=== PATIENT | male | born 1940 | race Caucasian/White ===

== ENCOUNTER 2022-06-19 10:19 | Inpatient (IN) | payer OTHER ==
[~2022-06-19] VITALS: Ht 188 cm; Wt 120.5 kg
[~2022-06-19 10:19] MED LIST: AMLO10 PO; AMLO5 PO; ASPI81CH PO; ATOR20 PO; Carvedilol12.5 MG PO; ETOD400CR PO; FISH OIL 1,2001 EAC7; HYDCHL12.5 PO; METF500 PO; Multiple Vitam1 EAC1 PO; SIME80CH PO
[2022-06-19 11:14] LABS: BASOPHILS ABSOLUTE AUTO 0.02 K/mm3 (0.00-0.23); BASOPHILS PERCENT AUTO 0 % (0-2); EOSINOPHILS ABSOLUTE AUTO 0.01 K/mm3 (0.00-0.68); EOSINOPHILS PERCENT AUTO 0 % (0-6); Hematocrit 27.8 % (37.0-53.0); Hemoglobin 9.6 g/dL (13.5-17.5); IMMATURE GRAN ABSOLUTE AUTO 0.04 K/mm3 (0.00-0.10); IMMATURE GRAN PERCENT AUTO 1 % (0-1); LYMPHOCYTES ABSOLUTE AUTO 0.53 K/mm3 (0.84-5.20); LYMPHOCYTES PERCENT AUTO 7 % (21-46); MONOCYTES ABSOLUTE AUTO 0.52 K/mm3 (0.16-1.47); MONOCYTES PERCENT AUTO 7 % (4-13); Mean Corpuscular HGB 32.3 pg (26.0-34.0); Mean Corpuscular HGB Conc 34.5 g/dL (31.5-36.5); Mean Corpuscular Volume 94 fL (80-100); Mean Platelet Volume 9.9 fL (9.1-12.4); NEUTROPHILS ABSOLUTE AUTO 6.45 K/mm3 (1.96-9.15); NEUTROPHILS PERCENT AUTO 85 % (41-73); Platelet Count 164 K/mm3 (150-400); RDW Coefficient Variation 15.5 % (11.7-14.2); RDW Standard Deviation 53.5 fL (35.1-46.3); Red Blood Cell Count 2.97 M/mm3 (4.30-5.90); White Blood Cell Count 7.57 K/mm3 (4.00-11.30)
[2022-06-19 11:25] LABS: Albumin, Blood 2.9 g/dL (3.4-5.0); Albumin/Globulin Ratio 0.7 (0.8-1.8); Bilirubin, Direct 0.5 mg/dL (0.0-0.3); Bilirubin, Indirect 1.2 mg/dL (0.1-0.7); Bilirubin, Total 1.7 mg/dL (0.1-1.0); Bun/Creatinine Ratio 46.5 (12.0-20.0); Creatinine, Blood 1.14 mg/dL (0.60-1.20); Potassium, Blood 3.9 mmol/L (3.5-5.5); Total Protein, Blood 6.9 g/dL (6.4-8.2)
[2022-06-19 12:51] LABS: International Normalized Ratio 1.23; Prothrombin Time Results 12.7 Sec (9.7-11.5)
[2022-06-19 13:57] LABS: Hematocrit 27.7 % (37.0-53.0); Hemoglobin 9.7 g/dL (13.5-17.5)
--- NOTE | 2022-06-19 16:02 | NUR ---
06/19/22 1602 [place] HISTORY, CHART, MEDICATIONS AND ALLERGIES REVIEWED BEFORE START OF PROCEDURE. PATIENT CONFIRMS NPO STATUS AND AGREES WITH SCHEDULED PROCEDURE. 3-LEAD EKG REVIEWED WITH PHYSICIAN PRIOR TO START OF PROCEDURE. MONITOR INTACT WITH CONTINUOUS PULSE OXIMETRY,CAPNOGRAPHY, 3-LEAD EKG, INTERMITTENT BP. SUPPLEMENTAL O2 TO BE TITRATED THROUGHOUT PROCEDURE TO MAINTAIN O2 SATURATION ABOVE 90%. PATIENT DETERMINED TO BE ASA APPROPRIATE FOR PROPOFOL SEDATION PRIOR TO START OF PROCEDURE BY DR. KYLE.
--- NOTE | 2022-06-19 18:54 | NUR ---
PT ARRIVED FROM HER AT APROX 1430. PT TAKEN TO EGD, SEE PROCEDURE NOTES. NO ACUTE EVENTS, PT HAS RECOVERED WELL P0ST ANETHESIA. PT IS VERY [place]. SEE DOCUMENTED VS AND ASSESSMENTS. PT ABLE TO STAND AND AMBULATE TO REST ROOM WITH STAFF STANDBY ASSISTANCE. PT ABLE TO USE CALL LIGHT FOR NEEDS, CALL LIGHT IN REACH, WILL CONTINUE TO MONITOR AND GIVE REPORT TO NOC SHIFT RN.
[2022-06-19 19:40] LABS: Hematocrit 23.7 % (37.0-53.0); Hemoglobin 8.3 g/dL (13.5-17.5)
--- NOTE | 2022-06-19 20:49 | NUR ---
ASSUMPTION OF CARE THIS RN ASSUMED CARE OF PATIENT AT 1900. REPORT TAKEN FROM REGULO CORDOVA. PATIENT ALERT AND ORIENTED FULLY BUT [place]. ABLE TO MAKE NEEDS KNOWN. PATIENT APPEARS FATIGUED. VITALS STABLE. MAP >65 AT THIS TIME. HEMOGLOBIN 8.3 AT THIS TIME, DOWN FROM 9.7 FROM LAB AT 1347 06/19. BLOOD CONSENT SIGNED. PROTONIX GTT, OCTREOTIDE GTT, AND NS INFUSING PER EMAR. BED IN LOWEST POSITION AND CALL LIGHT WITHIN REACH.
[2022-06-20 02:05] LABS: Hematocrit 21.8 % (37.0-53.0); Hemoglobin 7.7 g/dL (13.5-17.5)
[2022-06-20 02:25] LABS: Albumin, Blood 2.6 g/dL (3.4-5.0); Albumin/Globulin Ratio 0.9 (0.8-1.8); Bilirubin, Total 0.9 mg/dL (0.1-1.0); Bun/Creatinine Ratio 48.7 (12.0-20.0); Calcium, Blood 8.6 mg/dL (8.5-10.1); Creatinine, Blood 1.17 mg/dL (0.60-1.20); Globulin, Blood 2.9 g/dL (2.2-4.0); Percent Saturation 25.8 % (20.0-50.0); Potassium, Blood 3.7 mmol/L (3.5-5.5); Total Protein, Blood 5.5 g/dL (6.4-8.2)
--- NOTE | 2022-06-20 04:23 | NUR ---
SHIFT SUMMARY NO ACUTE CHANGES DURING THIS SHIFT. PATIENT DENIES DIZZINESS, SOB, N/V, AND NO DARK COLORED BM DURING THIS SHIFT. VITALS STABLE. MAP >65. SR WITH 1ST DEGREE HB WITH HR 70-90'S DURING THIS SHIFT. PATIENT IS ALERT AND ORIENTED X4 AND ABLE TO MAKE NEEDS KNOWN AND CALLS APPROPRIATELY. OCTREOTIDE GTT, PROTONIX GTT, AND NS INFUSING PER EMAR. BED IN LOWEST POSITION AND CALL LIGHT WITHIN REACH. THIS RN WILL CONTINUE TO MONITOR UNTIL SHIFT CHANGE AT 0700.
--- NOTE | 2022-06-20 19:30 | NUR ---
ASSUMPTION OF CARE THIS RN ASSUMED CARE OF PATIENT AT 1900. REPORT TAKEN FROM JENSEN CORDOVA. PATIENT ALERT AND ORIENTED FULLY. [place]. DENIES ALL PAIN. DENIES N/V. DENIES DIZZINESS/SOB. VITALS STABLE AT THIS TIME. PROTONIX GTT, OCTREOTIDE GTT, AND NS INFUSING PER EMAR. PATIENT ABLE TO MAKE NEEDS KNOWN AND CALLS APPROPRIATELY. BED IN LOWEST POSITION AND CALL LIGHT WITHIN REACH.
[2022-06-21 03:43] LABS: Hematocrit 22.1 % (37.0-53.0); Hemoglobin 7.6 g/dL (13.5-17.5); Mean Corpuscular HGB 32.5 pg (26.0-34.0); Mean Corpuscular HGB Conc 34.4 g/dL (31.5-36.5); Mean Corpuscular Volume 94 fL (80-100); Mean Platelet Volume 9.4 fL (9.1-12.4); Platelet Count 114 K/mm3 (150-400); RDW Coefficient Variation 15.7 % (11.7-14.2); Red Blood Cell Count 2.34 M/mm3 (4.30-5.90); White Blood Cell Count 3.95 K/mm3 (4.00-11.30)
[2022-06-21 04:02] LABS: Albumin, Blood 2.7 g/dL (3.4-5.0); Anion Gap 8 mmol/L (6-16); Blood Urea Nitrogen 35 mg/dL (8-24); Bun/Creatinine Ratio 32.1 (12.0-20.0); CO2, Blood 24 mmol/L (21-32); Calcium, Blood 8.4 mg/dL (8.5-10.1); Chloride, Blood 105 mmol/L (98-108); Creatinine, Blood 1.09 mg/dL (0.60-1.20); Glomerular Filtration Rate 68 (60-); Glucose, Blood 154 mg/dL (70-99); Phosphorus, Blood 2.8 mg/dL (2.5-4.9); Potassium, Blood 3.5 mmol/L (3.5-5.5); Sodium, Blood 137 mmol/L (136-145)
--- NOTE | 2022-06-21 04:45 | NUR ---
SHIFT SUMMARY NO ACUTE CHANGES DURING THIS SHIFT. VITALS STABLE. HGB STABLE WITH THIS AM'S LAB DRAW AT 7.6. PATIENT IS [place] & [place]. ORIENTED FULLY AND CALLS APPROPRIATELY. 1P ASSIST WITH FWW TO BATHROOM. CONTINENT OF B/B. NO N/V OR DARK/BLACK/TARRY STOOLS NOTED. PROTONIX GTT, OCTREOTIDE GTT, AND NS INFUSING PER EMAR. BED IN LOWEST POSITION AND CALL LIGHT WITHIN REACH. THIS RN WILL CONTINUE TO MONITOR UNTIL SHIFT CHANGE AT 0700.
[2022-06-21 08:11] LABS: COMPLEMENT C3, SERUM 100 mg/dL (82-167)
--- NOTE | 2022-06-21 17:55 | NUR ---
SHIFT SUMMARY NO ACUTE CHANGES THIS SHIFT. PT AOX4, VSS. FAMILY IN ROOM MOST OF DAY. DENIES PAIN. UP TO BATHROOM SBA W/ FWW TO VOID AND HAVE BROWN, BMS, NO OBVIOUS SIGNS OF BLACK TARRY STOOL NOTED. NS DC'D THIS SHIFT PER ORDERS. PROTONIX GTT DC'D THIS SHIFT PER EMAR. OCTREOTIDE INFUSING PER EMAR. PT CURRENTLY RESTING IN ROOM, EAGER TO GO HOME TOMORROW. CALL LIGHT IN REACH.
[2022-06-21 20:06] LABS: ANTI-DSDNA ANTIBODIES <1 IU/mL (0-9); RNP ANTIBODIES <0.2 AI (0.0-0.9); SJOGREN'S ANTI-SS-A <0.2 AI (0.0-0.9); SJOGREN'S ANTI-SS-B <0.2 AI (0.0-0.9); SMITH ANTIBODIES <0.2 AI (0.0-0.9)
--- NOTE | 2022-06-21 20:51 | NUR ---
ASSUMPTION OF CARE THIS RN ASSUMED CARE OF PATIENT AT 1900. REPORT TAKEN FROM JENSEN CORDOVA. PATIENT GRAYLING AND A&OX4. ABLE TO MAKE NEEDS KNOWN AND CALLS APPROPRIATELY. VITALS STABLE. MAP >65. AMBULATES WITH FWW TO BATHROOM. CONTINENT. OCTREOTIDE GTT INFUSING PER EMAR. BED IN LOWEST POSITION AND CALL LIGHT WITHIN REACH.
[2022-06-22 04:08] LABS: CERULOPLASMIN 21.1 mg/dL (16.0-31.0)
--- NOTE | 2022-06-22 05:13 | NUR ---
SHIFT SUMMARY NO ACUTE CHANGES DURING THIS SHIFT. VITALS STABLE. NO CHANGES TO NEURO. PATIENT IS ABLE TO MAKE NEEDS KNOWN AND CALLS APPROPRIATELY. PATIENT SBA TO BATHROOM WITH FWW. ABLE TO REPOSITION SELF IN BED. OCTREOTIDE GTT INFUSING PER EMAR. BED IN LOWEST POSITION AND CALL LIGHT WITHIN REACH. THIS RN WILL CONTINUE TO MONITOR UNTIL SHIFT CHANGE AT 0700.
[2022-06-22 06:10] LABS: HBSAG SCREEN Negative (Negative); HCV AB 0.1 (0.0-0.9); HEP A AB, IGM Negative (Negative); HEP B CORE AB, TOT Negative (Negative)
[2022-06-22] MEDS ORDERED: SPIR50 PO (12:08)
[2022-06-22] MEDS ORDERED: FURO20 PO (12:08)
[2022-06-22] MEDS ORDERED: VISBIOME 112.51 EACH PO (12:09)
[2022-06-22] MEDS ORDERED: CIPR500 PO (12:10)
[2022-06-22] MEDS ORDERED: PANT40 PO (12:10)
[2022-06-22] MEDS ORDERED: SUCR1 PO (12:11)
--- NOTE | 2022-06-22 14:10 | NUR ---
PT IS TO BE DISCHARGED HOME WITH HIS AND SON. PT ABLE TO AMBULATE IN THE ROOM WITH A FWW. IVs X 2 REMOVED, CATHETERS INTACT, NO REDNESS OR SWELLING NOTED. DISCHARGE TEACHING COMPLETED INCLUDING FOLLOW UP APPOINTMENTS, MEDICATION LIST, MD INSTRUCTIONS AND EDUCATION MATERIALS. PT AND HIS AND SON VERBALIZE UNDERSTANDING AND HAVE NO QUESTIONS AT THIS TIME. PT SENT HOME WITH ALL BELONGINGS. NO FURTHER DISCHARGE NEEDS NOTED.
== END 2022-06-22 14:37 | disposition home or self-care (01) | DRG 432 ==
LOC: ER 10:19 → PCU 13:07
PROVIDERS: Internal Medicine; Nurse Practitioner Acute Care; Student in an Organized Health Care Education/Training Program; ADMIT Student in an Organized Health Care Education/Training Program
PROC: 06L38CZ Occlusion of Esophageal Vein with Extraluminal Device, Via Natural or Artificial Opening Endoscopic (ICD-10-PCS; principal; 2022-06-19 16:00)
DX: K70.31 Alcoholic cirrhosis of liver with ascites (principal); I85.11 Secondary esophageal varices with bleeding; K22.6 Gastro-esophageal laceration-hemorrhage syndrome; D61.818 Other pancytopenia; D62 Acute posthemorrhagic anemia; E87.1 Hypo-osmolality and hyponatremia; K76.6 Portal hypertension; J91.8 Pleural effusion in other conditions classified elsewhere; E11.9 Type 2 diabetes mellitus without complications; K31.89 Other diseases of stomach and duodenum; I10 Essential (primary) hypertension; E78.5 Hyperlipidemia, unspecified; Z96.653 Presence of artificial knee joint, bilateral; Z86.010 Personal history of colon polyps; Z90.49 Acquired absence of other specified parts of digestive tract; Z98.890 Other specified postprocedural states; Z79.82 Long term (current) use of aspirin; Z79.84 Long term (current) use of oral hypoglycemic drugs; Z79.899 Other long term (current) drug therapy
CPT/HCPCS: 36415; 76705; 80048; 80053; 80069; 80076; 82103; 82105; 82272; 82390; 82728; 82947; 83010; 83540; 83550; 83615; 85014; 85018; 85025; 85027; 85610; 85730; 86015; 86160; 86225; 86235; 86381; 86704; 86708; 86803; 87340; 93005; 93010; 96365; 96375; 96376; 99285-25; A9270; C9113; J0696; J2354; J2704; J2765; J7030; J7050; J7120

== ENCOUNTER 2023-06-05 12:47 | Day surgery (SDC) | payer OTHER ==
[~2023-06-05] VITALS: Ht 193 cm; Wt 119.2 kg
[~2023-06-05 12:47] MED LIST changes: +CIPR500 PO; +FERSU300 PO; +FLUC200 PO; +FURO20 PO; +MULTI-VITAMIN1 EAC2 PO; +PANT40 PO; +SPIR50 PO; +SUCR1 PO; +SUCRALFATE1 GM/1015 PO; +URSODIOL500 MG PO; +VISBIOME 112.51 EACH PO
[2023-06-05] MEDS ORDERED: FLONASE SENSIM5.9 M1 NS (13:35)
[2023-06-05 16:07] VITALS: BP 156/72
== END 2023-06-05 16:00 | disposition home or self-care (01) ==
LOC: ORSCSDS 12:47
PROVIDERS: Internal Medicine Gastroenterology
PROC: 0DJ08ZZ Inspection of Upper Intestinal Tract, Via Natural or Artificial Opening Endoscopic (ICD-10-PCS; principal; 2023-06-05 14:30)
DX: I85.00 Esophageal varices without bleeding (principal); K74.3 Primary biliary cirrhosis; B37.81 Candidal esophagitis; K76.6 Portal hypertension; K31.89 Other diseases of stomach and duodenum; I12.9 Hypertensive chronic kidney disease with stage 1 through stage 4 chronic kidney disease, or unspecified chronic kidney disease; N18.9 Chronic kidney disease, unspecified; E11.22 Type 2 diabetes mellitus with diabetic chronic kidney disease; Z87.891 Personal history of nicotine dependence; E78.5 Hyperlipidemia, unspecified; Z79.84 Long term (current) use of oral hypoglycemic drugs; Z79.899 Other long term (current) drug therapy
CPT/HCPCS: 82947; J2704; J7120

== ENCOUNTER 2024-03-19 08:03 | Observation (INO) | payer OTHER ==
[~2024-03-19] VITALS: Ht 193 cm; Wt 122.6 kg
[~2024-03-19 08:03] MED LIST changes: +FLONASE SENSIM5.9 M1 NS
[2024-03-19 08:50] LABS: BASOPHILS ABSOLUTE AUTO 0.03 K/mm3 (0.00-0.23); BASOPHILS PERCENT AUTO 1 % (0-2); EOSINOPHILS ABSOLUTE AUTO 0.07 K/mm3 (0.00-0.68); EOSINOPHILS PERCENT AUTO 2 % (0-6); Hematocrit 34.1 % (37.0-53.0); Hemoglobin 11.4 g/dL (13.5-17.5); IMMATURE GRAN ABSOLUTE AUTO 0.01 K/mm3 (0.00-0.10); IMMATURE GRAN PERCENT AUTO 0 % (0-1); LYMPHOCYTES ABSOLUTE AUTO 0.41 K/mm3 (0.84-5.20); LYMPHOCYTES PERCENT AUTO 12 % (21-46); MONOCYTES ABSOLUTE AUTO 0.33 K/mm3 (0.16-1.47); MONOCYTES PERCENT AUTO 10 % (4-13); Mean Corpuscular HGB 33.3 pg (26.0-34.0); Mean Corpuscular HGB Conc 33.4 g/dL (31.5-36.5); Mean Corpuscular Volume 100 fL (80-100); Mean Platelet Volume 9.5 fL (9.1-12.4); NEUTROPHILS ABSOLUTE AUTO 2.47 K/mm3 (1.96-9.15); NEUTROPHILS PERCENT AUTO 75 % (41-73); Platelet Count 98 K/mm3 (150-400); RDW Coefficient Variation 15.8 % (11.7-14.2); RDW Standard Deviation 57.1 fL (35.1-46.3); Red Blood Cell Count 3.42 M/mm3 (4.30-5.90); White Blood Cell Count 3.32 K/mm3 (4.00-11.30)
[2024-03-19 08:58] LABS: Albumin, Blood 3.3 g/dL (3.4-5.0); Albumin/Globulin Ratio 0.9 (0.8-1.8); Bilirubin, Total 1.7 mg/dL (0.1-1.0); Bun/Creatinine Ratio 19.1 (12.0-20.0); Calcium, Blood 9.4 mg/dL (8.5-10.1); Creatinine, Blood 1.1 mg/dL (0.60-1.20); Globulin, Blood 3.8 g/dL (2.2-4.0); Potassium, Blood 4.5 mmol/L (3.5-5.5); Total Protein, Blood 7.1 g/dL (6.4-8.2)
[2024-03-19] MEDS ORDERED: Lidocaine 2% Jelly Uro-Jet UR ONE (09:40)
[2024-03-19 10:30] LABS: Source, Urine Clean Catch
[2024-03-19 10:41] LABS: Appearance, Urine Clear (Clear); Bilirubin, Urine Neg (Neg); Blood, Urine Neg (Neg); Color, Urine Yellow (P-Yellow); Glucose Qualitative, Urine Neg (Neg); Ketones, Urine Neg (Neg); Leukocyte Esterase, Urine Neg (Neg); Nitrite, Urine Neg (Neg); Protein, Urine 1+ (Neg); Urobilinogen, Urine NORM (Normal)
[2024-03-19] MEDS ORDERED: ACET500 PO ×2 (12:07)
[2024-03-19] MEDS ORDERED: FLU VACC TS2024-25(6MOS UP)/PF 45 MCG/0.5 ML SYRINGE IM SCH (12:45)
[2024-03-19] MEDS ORDERED: Ondansetron HCl 2 MG / ML 2ML Vial IV PRN (12:50)
[2024-03-19] MEDS ORDERED: Acetaminophen 500 MG Tab PO PRN (13:00)
[2024-03-19 14:10] VITALS: BP 148/92
[2024-03-19 15:48] VITALS: BP 122/71
[2024-03-19] MEDS ORDERED: Insulin Regular 100 UNIT/ML 10ML Vial SC SCH (16:30)
--- NOTE | 2024-03-19 16:50 | NUR ---
SHIFT SUMMARY; PATIENT IS EARLY AFTERNOON ADMIT FROM ER. WAS CONSULTED ABOUT PLACING SUPRAPUBIC CATHETER FOR SEVERE URINARY RETENTION. PER REPORT HE HAD >750ML IN AFTER ATTEMPTING TO VOID IN ER. ATTEMPTS AT PLACE [facility] CATHETER IN ER WERE UNSUCCESSFUL. ON ARRIVAL TO [facility] FLOOR PATIENT WAS ABLE TO VOID MULTIPLE TIMES TOTALLY >600ML OUTPUT. BLADDER SCAN PER ORDER WAS 395. DECISION TO HOLD PAITENT OVERNIGHT AND WATCH HIM AND MAKE DECISION IN AM ABOUT CATHETER. FAMILY IS NOTIFIED. WILL CONTINUE TO MONITOR THIS PATIENT CLOSELY UNTIL REPORT AND HAND OFF TO NOC SHIFT RN.
[2024-03-19 20:29] VITALS: BP 106/71
[2024-03-19] MEDS ORDERED: Carvedilol 6.25 MG Tab PO SCH (21:00)
[2024-03-20 02:54] VITALS: BP 117/50
--- NOTE | 2024-03-20 04:45 | NUR ---
SHIFT SUMMARY PATIENT IS ALERT AND ORIENTED. PATIENT HAS HAD NO ACUTE EVENTS THIS SHIFT. VITAL SIGNS REVIEWED. PATIENT HAS HAD NO COMPLAINTS OF PAIN, NAUSEA, SOB OR VOMITTING THIS SHIFT. PATIENT HAS BEEN VOIDING URINE THIS SHIFT. PATIENT HAS BEEN SLEEPING MOST OF THIS SHIFT WITH NO INCIDENTS. BED IN LOCKED AND LOWEST POSITION. CALL LIGHT IN PLACE. WILL MONITOR UNTIL SHIFT CHANGE.
[2024-03-20 04:52] LABS: BASOPHILS ABSOLUTE AUTO 0.01 K/mm3 (0.00-0.23); BASOPHILS PERCENT AUTO 0 % (0-2); EOSINOPHILS ABSOLUTE AUTO 0.04 K/mm3 (0.00-0.68); EOSINOPHILS PERCENT AUTO 1 % (0-6); Hematocrit 29.2 % (37.0-53.0); Hemoglobin 9.6 g/dL (13.5-17.5); IMMATURE GRAN ABSOLUTE AUTO 0.01 K/mm3 (0.00-0.10); IMMATURE GRAN PERCENT AUTO 0 % (0-1); LYMPHOCYTES PERCENT AUTO 14 % (21-46); MONOCYTES PERCENT AUTO 14 % (4-13); Mean Corpuscular HGB 33.3 pg (26.0-34.0); Mean Corpuscular HGB Conc 32.9 g/dL (31.5-36.5); Mean Corpuscular Volume 101 fL (80-100); Mean Platelet Volume 9.4 fL (9.1-12.4); NEUTROPHILS ABSOLUTE AUTO 1.97 K/mm3 (1.96-9.15); NEUTROPHILS PERCENT AUTO 70 % (41-73); Platelet Count 87 K/mm3 (150-400); RDW Coefficient Variation 15.8 % (11.7-14.2); RDW Standard Deviation 58.7 fL (35.1-46.3); Red Blood Cell Count 2.88 M/mm3 (4.30-5.90); White Blood Cell Count 2.83 K/mm3 (4.00-11.30)
[2024-03-20 05:28] LABS: Albumin, Blood 2.9 g/dL (3.4-5.0); Albumin/Globulin Ratio 0.9 (0.8-1.8); Bilirubin, Total 1.8 mg/dL (0.1-1.0); Bun/Creatinine Ratio 16.5 (12.0-20.0); Calcium, Blood 8.8 mg/dL (8.5-10.1); Creatinine, Blood 1.21 mg/dL (0.60-1.20); Globulin, Blood 3.3 g/dL (2.2-4.0); Potassium, Blood 4.3 mmol/L (3.5-5.5); Total Protein, Blood 6.2 g/dL (6.4-8.2)
[2024-03-20 07:46] VITALS: BP 142/81
[2024-03-20] MEDS ORDERED: Atorvastatin 10 MG Tab PO SCH (09:00)
[2024-03-21] MEDS ORDERED: Ferrous Sulfate 325 MG Tab PO SCH (09:00)
[2024-05-01] MEDS ORDERED: ELIQUIS5 M2 PO (13:34)
[2024-05-01] MEDS ORDERED: CLOP75 PO (13:35)
[2024-05-01] MEDS ORDERED: LOSA25 PO (13:35)
[2024-05-01] MEDS ORDERED: MELA3 PO (13:35)
[2024-05-01] MEDS ORDERED: Atarax10 MG PO (13:35)
[2024-05-01] MEDS ORDERED: Robaxin750 MG PO (13:35)
[2024-05-01] MEDS ORDERED: METO100ER PO (13:36)
[2024-05-01] MEDS ORDERED: PANT40 PO (13:36)
[2024-05-01] MEDS ORDERED: NICO21TP TOP (13:36)
[2024-05-01] MEDS ORDERED: MIRT15 PO (13:36)
[2024-05-01] MEDS ORDERED: RANO500T PO (13:37)
[2024-05-01] MEDS ORDERED: TRAZ50 PO (13:37)
== END 2024-03-20 09:51 | disposition home or self-care (01) ==
LOC: ER 08:03 → MEDS 08:04
PROVIDERS: Student in an Organized Health Care Education/Training Program; ADMIT Internal Medicine
DX: N40.1 Benign prostatic hyperplasia with lower urinary tract symptoms (principal); N13.8 Other obstructive and reflux uropathy; R33.8 Other retention of urine; K76.89 Other specified diseases of liver; K70.30 Alcoholic cirrhosis of liver without ascites; I48.0 Paroxysmal atrial fibrillation; E11.9 Type 2 diabetes mellitus without complications; E78.5 Hyperlipidemia, unspecified; Z79.84 Long term (current) use of oral hypoglycemic drugs; Z79.899 Other long term (current) drug therapy
CPT/HCPCS: 36415; 51798; 74177; 80053; 82947; 83690; 83735; 85025; 93005; 93010; 94760; 99285-25; A9270; G0378; Q9967

== ENCOUNTER 2024-03-20 16:21 | Inpatient (IN) | payer OTHER ==
[~2024-03-20] VITALS: Ht 193 cm; Wt 120.5 kg
[~2024-03-20 16:21] MED LIST changes: +ACET500 PO
[2024-03-20] MEDS ORDERED: FLU VACC TS2024-25(6MOS UP)/PF 45 MCG/0.5 ML SYRINGE IM ONE (19:05)
[2024-03-20] MEDS ORDERED: FentaNYL Citrate 50 MCG/ML 2 ML Injection IV PRN (19:10)
[2024-03-20] MEDS ORDERED: Ondansetron HCl 2 MG / ML 2ML Vial IV PRN (19:10)
[2024-03-20 19:19] LABS: BASOPHILS ABSOLUTE AUTO 0.01 K/mm3 (0.00-0.23); BASOPHILS PERCENT AUTO 0 % (0-2); EOSINOPHILS ABSOLUTE AUTO 0.06 K/mm3 (0.00-0.68); EOSINOPHILS PERCENT AUTO 2 % (0-6); Hematocrit 34.7 % (37.0-53.0); Hemoglobin 11.5 g/dL (13.5-17.5); IMMATURE GRAN ABSOLUTE AUTO 0.02 K/mm3 (0.00-0.10); IMMATURE GRAN PERCENT AUTO 1 % (0-1); LYMPHOCYTES ABSOLUTE AUTO 0.27 K/mm3 (0.84-5.20); LYMPHOCYTES PERCENT AUTO 9 % (21-46); MONOCYTES ABSOLUTE AUTO 0.31 K/mm3 (0.16-1.47); MONOCYTES PERCENT AUTO 11 % (4-13); Mean Corpuscular HGB 33.2 pg (26.0-34.0); Mean Corpuscular HGB Conc 33.1 g/dL (31.5-36.5); Mean Corpuscular Volume 100 fL (80-100); Mean Platelet Volume 9.7 fL (9.1-12.4); NEUTROPHILS ABSOLUTE AUTO 2.29 K/mm3 (1.96-9.15); NEUTROPHILS PERCENT AUTO 77 % (41-73); Platelet Count 97 K/mm3 (150-400); RDW Coefficient Variation 15.8 % (11.7-14.2); RDW Standard Deviation 58.1 fL (35.1-46.3); Red Blood Cell Count 3.46 M/mm3 (4.30-5.90); White Blood Cell Count 2.96 K/mm3 (4.00-11.30)
[2024-03-20 19:57] LABS: Albumin, Blood 3.6 g/dL (3.4-5.0); Albumin/Globulin Ratio 0.9 (0.8-1.8); Bilirubin, Total 2.4 mg/dL (0.1-1.0); Bun/Creatinine Ratio 18.3 (12.0-20.0); Calcium, Blood 9.4 mg/dL (8.5-10.1); Creatinine, Blood 1.2 mg/dL (0.60-1.20); Globulin, Blood 3.9 g/dL (2.2-4.0); Potassium, Blood 4.3 mmol/L (3.5-5.5); Total Protein, Blood 7.5 g/dL (6.4-8.2)
[2024-03-20 21:00] VITALS: BP 150/79
--- NOTE | 2024-03-20 22:48 | NUR ---
PATIENT IS A NEW ADMIT FROM THE ED. SBA TRANSFER FROM [facility] TO BED. DENIES CHEST PAIN, SOB, AND N/V. ON ROOM AIR. SON PRESENT ON ADMIT. REPORTS HE WAS HERE YESTERDAY AND DISCHARGED TO THE MD FOR UROLOGY FOLLOWUP. UROLOGIST UNABLE TO PLACEY [facility] AND ED AND REPORTED NEED SUPRAPUBIC CATH. CONSULT CALLED INTO DR Tomlinson ANSWERING SERVICE AND REPORTS HE WILL BE IN THIS MORNING FOR SUPRAPUBIC CATH. TELE PLACED NSR 94. PATIENT HAD VOIDED 100 mL & 150 mL SINCE ADMIT HERE. ORIENTED TO ROOM AND CALL LIGHT SYSTEM. SON NOT SURE IF HE WILL STAY. CALL LIGHT IN REACH. WCTM.
[2024-03-21 02:38] VITALS: BP 131/61
--- NOTE | 2024-03-21 04:15 | NUR ---
SHIFT SUMMARY PATIENT HAVING SMALL VOIDS X 4 TOTALIN mL SO FAR. AXOX 4 AND SBA TO BR. USES URINAL AT BEDSIDE. DENIES CHEST PAIN, SOB, AND N/V. PIV INTACT. TELE MONITOR NSR 94. [place] WITH HEARING AIDES. VSS/AFEBRILE. SLEPT MOST OF THE SHIFT. SON DID LEAVE FOR EVENING BUT WILL BE BACK THIS AM. CALL LIGHT IN REACH. BED IN LOWEST POSITION. WILL CONTINUE TO MONITOR UNTIL DAY SHIFT NURSE ASSUMES CARE.
[2024-03-21 05:52] LABS: BASOPHILS ABSOLUTE AUTO 0.01 K/mm3 (0.00-0.23); BASOPHILS PERCENT AUTO 0 % (0-2); EOSINOPHILS ABSOLUTE AUTO 0.08 K/mm3 (0.00-0.68); EOSINOPHILS PERCENT AUTO 2 % (0-6); Hematocrit 30.9 % (37.0-53.0); Hemoglobin 10.4 g/dL (13.5-17.5); IMMATURE GRAN ABSOLUTE AUTO 0.02 K/mm3 (0.00-0.10); IMMATURE GRAN PERCENT AUTO 1 % (0-1); LYMPHOCYTES PERCENT AUTO 15 % (21-46); MONOCYTES PERCENT AUTO 12 % (4-13); Mean Corpuscular HGB 33.3 pg (26.0-34.0); Mean Corpuscular HGB Conc 33.7 g/dL (31.5-36.5); Mean Corpuscular Volume 99 fL (80-100); Mean Platelet Volume 9.9 fL (9.1-12.4); NEUTROPHILS ABSOLUTE AUTO 2.32 K/mm3 (1.96-9.15); NEUTROPHILS PERCENT AUTO 70 % (41-73); Platelet Count 95 K/mm3 (150-400); RDW Coefficient Variation 15.9 % (11.7-14.2); RDW Standard Deviation 56.9 fL (35.1-46.3); Red Blood Cell Count 3.12 M/mm3 (4.30-5.90); White Blood Cell Count 3.33 K/mm3 (4.00-11.30)
[2024-03-21 06:24] LABS: Albumin, Blood 3.2 g/dL (3.4-5.0); Albumin/Globulin Ratio 0.9 (0.8-1.8); Bilirubin, Total 2.3 mg/dL (0.1-1.0); Bun/Creatinine Ratio 19.3 (12.0-20.0); Calcium, Blood 9.2 mg/dL (8.5-10.1); Creatinine, Blood 1.14 mg/dL (0.60-1.20); Globulin, Blood 3.6 g/dL (2.2-4.0); Potassium, Blood 4.1 mmol/L (3.5-5.5); Total Protein, Blood 6.8 g/dL (6.4-8.2)
[2024-03-21 07:30] VITALS: BP 148/65
[2024-03-21] MEDS ORDERED: Insulin Human Lispro 100 Units/ML 3ML Syringe SC SCH (07:30)
[2024-03-21] MEDS ORDERED: Carvedilol 6.25 MG Tab PO SCH (08:00)
--- NOTE | 2024-03-21 09:00 | NUR ---
pt laying in bed awake a/ox4, family at bedside, [place], lungs are clear t/o, resp even and unlabored, no cough noted, on r/a, hrirr, distant, tele in place running afib in 90's, trace edema noted to b/l le, ppp+1, cap refill <3 sec, vs stable, afebrile, piv to rfa, site is clear and patenet, btx4, abd flat soft notender, voids, very small amounts at a time, skin c/w/d, maew, [place], call light in reach.
--- NOTE | 2024-03-21 09:31 | NUR ---
PATIENT HAS SEVERAL QUESTIONS REGARDING TODAY'S PROCEDURE. PATIENT CURRENTLY NPO AND CONTINUES TO HAVE URINARY RETENTION AND DYSURIA. DR BRADFORD ON-CALL FOR IR THIS WEEKEND. REVIEW OF CREATININE SHOWS KIDNEYS SLIHGTLY IMPROVING AND STILL PASSING URINE. URGENT SUPRAPUBIC CATH PLACEMENT NOT INDICATED, BUT WILL DO IF TEAM IS CALLED IN FOR URGENT CASE, OTHERWISE WILL WAIT UNTIL SATURDAY. PROCEDURE DONE UNDER LOCAL, SO HE IS ABLE TO EAT AND DRINK. DR BRADFORD RECOMMENDS MONITORING KIDNEY FUNCTION AND TREATING ANY DISCOMFORT. WILL UPDATE DR. ALFONSO.
[2024-03-21] MEDS ORDERED: OxyCODONE HCL 5 MG TAB PO PRN (11:45)
[2024-03-21 15:40] VITALS: BP 133/57
[2024-03-21] MEDS ORDERED: Heparin Sodium,Porcine 5,000 UNIT/0.5 ML SDV SC SCH (16:00)
--- NOTE | 2024-03-21 18:22 | NUR ---
Pt has continued to void small amounts at a time, bladder scan this afternoon showed less than this am, took walks out in [place]. call light in reach.
[2024-03-21 20:09] VITALS: BP 110/49
[2024-03-22 02:05] VITALS: BP 127/58
--- NOTE | 2024-03-22 04:37 | NUR ---
SHIFT SUMMARY PATIENT HAD NO ACUTE CHANGES. AXOX 4 AND SBA TO BR. USES URINAL AT BEDSIDE HAVING VOIDS USUALLY <200 mL. BLADDER SCAN 351mL. DENIES CHEST PAIN, SOB, AND N/V. VSS/AFEBRILE. SLEPT MOST OF THE SHIFT. CALL LIGHT IN REACH. BED IN LOWEST POSITION. WILL CONTINUE TO MONITOR UNTIL DAY SHIFT NURSE ASSUMES CARE.
[2024-03-22 05:14] LABS: BASOPHILS ABSOLUTE AUTO 0.01 K/mm3 (0.00-0.23); BASOPHILS PERCENT AUTO 0 % (0-2); EOSINOPHILS ABSOLUTE AUTO 0.06 K/mm3 (0.00-0.68); EOSINOPHILS PERCENT AUTO 3 % (0-6); Hematocrit 29.3 % (37.0-53.0); Hemoglobin 9.5 g/dL (13.5-17.5); IMMATURE GRAN ABSOLUTE AUTO 0.01 K/mm3 (0.00-0.10); IMMATURE GRAN PERCENT AUTO 0 % (0-1); LYMPHOCYTES ABSOLUTE AUTO 0.35 K/mm3 (0.84-5.20); LYMPHOCYTES PERCENT AUTO 15 % (21-46); MONOCYTES ABSOLUTE AUTO 0.33 K/mm3 (0.16-1.47); MONOCYTES PERCENT AUTO 14 % (4-13); Mean Corpuscular HGB 32.9 pg (26.0-34.0); Mean Corpuscular HGB Conc 32.4 g/dL (31.5-36.5); Mean Corpuscular Volume 101 fL (80-100); Mean Platelet Volume 9.2 fL (9.1-12.4); NEUTROPHILS ABSOLUTE AUTO 1.66 K/mm3 (1.96-9.15); NEUTROPHILS PERCENT AUTO 69 % (41-73); Platelet Count 77 K/mm3 (150-400); RDW Coefficient Variation 15.7 % (11.7-14.2); RDW Standard Deviation 58.5 fL (35.1-46.3); Red Blood Cell Count 2.89 M/mm3 (4.30-5.90); White Blood Cell Count 2.42 K/mm3 (4.00-11.30)
[2024-03-22 05:49] LABS: Bun/Creatinine Ratio 18.3 (12.0-20.0); Calcium, Blood 8.8 mg/dL (8.5-10.1); Creatinine, Blood 1.26 mg/dL (0.60-1.20)
[2024-03-22 07:39] VITALS: BP 129/78
[2024-03-22 07:40] VITALS: BP 129/78
--- NOTE | 2024-03-22 10:47 | NUR ---
RE-FAXED FACESHEET TO DR. BETH ON 03-22-24 @ 2098
--- NOTE | 2024-03-22 17:48 | NUR ---
SHIFT SUMMARY: PT A/O X4. PLEASANT AND COOPERATIVE WITH CARE. INDEPENDENT IN ROOM. SLIGHT INCREASE IN CREATININE THIS SHIFT. PT DRINKING WATER FREQUENTLY. PT ABLE TO VOID SEVERAL TIMES THIS SHIFT WITH AMOUNTS BETWEEN 125mL AND 275mL. BLADDER SCAN COMPLETED ONCE THIS SHIFT @1543 SHOWING 391mL IN BLADDER POST VOID. RE-FAXED FACESHEET TO IR TODAY FOR POSSIBLE SUPRAPUBIC CATHETER PLACEMENT TOMORROW. STAGE 2 PRESSURE ULCER NOTED TO R. BUTT[place] REGION. PHOTO TAKEN AND PLACED IN CHART. DR. VIDES AWARE OF WOUND THIS SHIFT. MEPILEX PLACED ON WOUND AND SELF TURN Q2. CALL LIGHT IN REACH. BED IN LOWEST POSITION.
[2024-03-22 19:31] VITALS: BP 141/59
[2024-03-23 02:18] VITALS: BP 135/79
--- NOTE | 2024-03-23 04:12 | NUR ---
SHIFT SUMMARY PATIENT HAD NO ACUTE CHANGES. AXO X 4 AND INDEPENDENT IN ROOM AND [place] WITH FWW. DENIES CHEST PAIN, SOB, AND N/V. AFEBRILE. PIV INTACT. CBG 109. BLADDER SCAN 333 mL AND CONTINUES TO VOID USUALLY <200 mLS PER VOID. POSSIBLE SUPRAPUBIC CATHETER PLACEMENT TODAY. SLEPT MOST OF THE SHIFT. CALL LIGHT IN REACH. BED IN LOWEST POSITION. WILL CONTINUE TO MONITOR UNTIL DAY SHIFT NURSE ASSUMES CARE.
[2024-03-23 07:29] LABS: BASOPHILS ABSOLUTE AUTO 0.01 K/mm3 (0.00-0.23); BASOPHILS PERCENT AUTO 1 % (0-2); EOSINOPHILS ABSOLUTE AUTO 0.06 K/mm3 (0.00-0.68); EOSINOPHILS PERCENT AUTO 3 % (0-6); Hematocrit 29.6 % (37.0-53.0); Hemoglobin 9.8 g/dL (13.5-17.5); IMMATURE GRAN ABSOLUTE AUTO 0.01 K/mm3 (0.00-0.10); IMMATURE GRAN PERCENT AUTO 1 % (0-1); LYMPHOCYTES ABSOLUTE AUTO 0.33 K/mm3 (0.84-5.20); LYMPHOCYTES PERCENT AUTO 16 % (21-46); MONOCYTES ABSOLUTE AUTO 0.29 K/mm3 (0.16-1.47); MONOCYTES PERCENT AUTO 14 % (4-13); Mean Corpuscular HGB 33.1 pg (26.0-34.0); Mean Corpuscular HGB Conc 33.1 g/dL (31.5-36.5); Mean Corpuscular Volume 100 fL (80-100); Mean Platelet Volume 9.2 fL (9.1-12.4); NEUTROPHILS ABSOLUTE AUTO 1.37 K/mm3 (1.96-9.15); NEUTROPHILS PERCENT AUTO 66 % (41-73); Platelet Count 72 K/mm3 (150-400); RDW Coefficient Variation 15.4 % (11.7-14.2); RDW Standard Deviation 56.7 fL (35.1-46.3); Red Blood Cell Count 2.96 M/mm3 (4.30-5.90); White Blood Cell Count 2.07 K/mm3 (4.00-11.30)
[2024-03-23 07:30] LABS: Calcium, Blood 8.6 mg/dL (8.5-10.1); Creatinine, Blood 1.22 mg/dL (0.60-1.20); Potassium, Blood 4.2 mmol/L (3.5-5.5)
[2024-03-23 07:38] VITALS: BP 134/60
[2024-03-23] MEDS ORDERED: Lactated Ringer's 1,000 ML IV SCH (09:00)
[2024-03-23] MEDS ORDERED: NS 1,000 ML IV ONE (12:30)
[2024-03-23] MEDS ORDERED: Midazolam HCl 1MG / ML 2ML Vial ONE (12:46)
[2024-03-23] MEDS ORDERED: FentaNYL Citrate 50 MCG/ML 2 ML Injection ONE (12:47)
[2024-03-23 15:13] VITALS: BP 127/55
--- NOTE | 2024-03-23 17:08 | NUR ---
SHIFT SUMMARY; PATIENT RECEIVED 14 UPPER SORBI[place] SUPRAPUBIC CATHETER PLACED BY IR IN DIRECTOR ACCOUNT MANAGEMENT USING LOCAL ANESTHESIA. PER REPORT PATIENT TOLERATED WELL. RETURNED TO ROOM. >300 ML URINE OUTPUT LIGHT RED TINGED URINE NOTED IN BAG. DRESSING TO CATH SITE CLEAN DRY AND INTACT. 2 SUTURES NOTED TO BASE OF CATH. FAMILY EDUCATED ON CATH CARE. PATIENT PROVIDED WITH MEAL ON ARRIVAL BACK TO UNIT. MEDICATED WITH INSULIN PER ORDER FOR CHEM BG 181 RECEIVED 1 UNIT. VITAL SIGNS ARE WNL AND STABLE. HE IS NOT FEBRILE. LUNGS ARE CLEAR TO AUSCULTATION. HE DENIES ANY PAIN OR DISCOMFORT. CURRENTLY PATIENT IS RESTING COMFORTABLY EYES CLOSED BREATHING EVEN AND UNLABORED. CALL LIGHT IN REACH. WILL CONTINUE TO MONITOR THIS PATIENT CLOSELY UNTIL REPORT AND HAND OFF TO NOC SHIFT RN.
[2024-03-23 19:47] VITALS: BP 110/55
--- NOTE | 2024-03-23 22:07 | NUR ---
1956 PT LYING IN BED, DENIES ANY DISCOMFORT AT THIS TIME. SP CATH IN PLACE, RIDGE URINE. SOME DRIED BLOOD, SCANT, AT SITE ON DRESSING. PT HAS WOUND ON BOTTOM BUT DECLINES DRESSING AT THIS TIME. TELE AFIB BBB 80. BS 122.
--- NOTE | 2024-03-23 22:10 | NUR ---
2200 PT REPORTS URINE IS IN SP CATH TUBE BUT NOT IN BAG, FLUSHED SP CATH, URINE IS NOW DRAINING WELL, RIDGE/RED WITH SOME SEDAMENT. PT AWARE TO LET US KNOW IF IT HAPPENS AGAIN. WILL CONTINUE TO MONITOR. NO OTHER APPARENT SIGNS OF DISTRESS. CALL LIGHT IS IN REACH.
--- NOTE | 2024-03-24 00:39 | NUR ---
0000 PT LYING IN BED, EYES CLOSED, APPEARS TO BE RESTING. WAKES EASILY TO VERBAL STIMULI. NO APPARENT SIGNS OF DISTRESS. CALL LIGHT IS IN REACH. DENIES NEED FOR ANYTHING AT THIS TIME.
--- NOTE | 2024-03-24 02:25 | NUR ---
PT LYING IN BED,EYES CLOSED, BREATHING IS EVEN, UNLABORED. PT SOFTLY SNORING. NO APPARENT SIGNS OF DISTRESS. CALL LIGHT IS IN REACH.
[2024-03-24 03:44] VITALS: BP 128/69
[2024-03-24 04:53] LABS: BASOPHILS ABSOLUTE AUTO 0.02 K/mm3 (0.00-0.23); BASOPHILS PERCENT AUTO 1 % (0-2); EOSINOPHILS ABSOLUTE AUTO 0.06 K/mm3 (0.00-0.68); EOSINOPHILS PERCENT AUTO 3 % (0-6); Hematocrit 29.5 % (37.0-53.0); Hemoglobin 9.8 g/dL (13.5-17.5); IMMATURE GRAN ABSOLUTE AUTO 0.01 K/mm3 (0.00-0.10); IMMATURE GRAN PERCENT AUTO 1 % (0-1); LYMPHOCYTES ABSOLUTE AUTO 0.31 K/mm3 (0.84-5.20); LYMPHOCYTES PERCENT AUTO 15 % (21-46); MONOCYTES ABSOLUTE AUTO 0.27 K/mm3 (0.16-1.47); MONOCYTES PERCENT AUTO 13 % (4-13); Mean Corpuscular HGB 33.2 pg (26.0-34.0); Mean Corpuscular HGB Conc 33.2 g/dL (31.5-36.5); Mean Corpuscular Volume 100 fL (80-100); Mean Platelet Volume 9.8 fL (9.1-12.4); NEUTROPHILS ABSOLUTE AUTO 1.35 K/mm3 (1.96-9.15); NEUTROPHILS PERCENT AUTO 67 % (41-73); Platelet Count 61 K/mm3 (150-400); RDW Coefficient Variation 15.5 % (11.7-14.2); RDW Standard Deviation 56.7 fL (35.1-46.3); Red Blood Cell Count 2.95 M/mm3 (4.30-5.90); White Blood Cell Count 2.02 K/mm3 (4.00-11.30)
[2024-03-24 05:14] LABS: Bun/Creatinine Ratio 17.6 (12.0-20.0); Calcium, Blood 8.3 mg/dL (8.5-10.1); Creatinine, Blood 1.25 mg/dL (0.60-1.20)
--- NOTE | 2024-03-24 05:29 | NUR ---
0400 PT LYING IN BED, EYES CLOSED, APPEARS TO BE RESTING. WAKES EASILY TO VERBAL STIMULI. NO APPARENT SIGNS OF DISTRESS. CALL LIGHT IS IN REACH.
--- NOTE | 2024-03-24 05:30 | NUR ---
PT IS AAO X 4, ON RA. TELE AFIB BBB 80'S. BS 122. SP CATH WITH RIDGE/RED URINE. HAD TO FLUSH X 1. WOUND ON BOTTOM ON R BUTTOCK, PT DECLINED DRESSING FOR NOW.
--- NOTE | 2024-03-24 05:45 | NUR ---
PT LYING IN BED, EYES CLOSED, APPEARS TO BE RESTING. BREATHING IS EVEN, UNLABORED. NO APPARENT SIGNS OF DISTRESS. CALL LIGHT IS IN REACH. NO OTHER CHANGES THIS SHIFT.
[2024-03-24 07:15] VITALS: BP 137/70
--- NOTE | 2024-03-24 11:15 | NUR ---
PATIENT DISCHARGED TO HOME. SON CHIP WILL DRIVE HIM. PATIENT IS AO X 4. SUPRAPUBIC CATHETER SHOWS RED TINGED URINE IN BAG. NO CLOTS. WOUND SITE CLEAN DRY AND INTACT. PATIENT AND SON EDUCATED ON CATH CARE. FLUSHES AND SYRINGES PROVIDED TO FLUSH CATH IS IT BECOMES PLUGGED. PATIENT HAS APPOINTMENT AT [place] NEXT WEEK WITH UROLOGY. WILL RETURN TO ER IF DIFFICULTY WITH DRAINAGE FROM CATH BAG OR SIGNS OR SYMPTOMS OF INFECTION AT SURGICAL SITE.
== END 2024-03-24 11:30 | disposition home or self-care (01) | DRG 726 ==
LOC: ER 16:21 → MEDS 16:22 → ERHOLD 16:22 → MEDS 20:45
PROVIDERS: Family Medicine; Internal Medicine; Student in an Organized Health Care Education/Training Program; ADMIT Internal Medicine
PROC: 0T9B30Z Drainage of Bladder with Drainage Device, Percutaneous Approach (ICD-10-PCS; principal; 2024-03-23)
DX: N40.1 Benign prostatic hyperplasia with lower urinary tract symptoms (principal); N13.8 Other obstructive and reflux uropathy; K76.6 Portal hypertension; Z85.46 Personal history of malignant neoplasm of prostate; K70.30 Alcoholic cirrhosis of liver without ascites; K76.89 Other specified diseases of liver; I48.0 Paroxysmal atrial fibrillation; N18.30 Chronic kidney disease, stage 3 unspecified; D69.6 Thrombocytopenia, unspecified; E11.22 Type 2 diabetes mellitus with diabetic chronic kidney disease; E78.5 Hyperlipidemia, unspecified; D63.1 Anemia in chronic kidney disease; Z79.899 Other long term (current) drug therapy; Z79.84 Long term (current) use of oral hypoglycemic drugs
CPT/HCPCS: 36415; 51102; 80048; 80053; 82947; 85025; 99152; 99285; A9270; C1729; C1769; G0378; J1644; J2250; J3010; J7030; Q9967

== ENCOUNTER 2024-05-04 09:53 | Day surgery (SDC) | payer OTHER ==
[~2024-05-04] VITALS: Ht 177.8 cm; Wt 81.0 kg
[~2024-05-04 09:53] MED LIST changes: +Atarax10 MG PO; +CLOP75 PO; +ELIQUIS5 M2 PO; +LOSA25 PO; +MELA3 PO; +METO100ER PO; +MIRT15 PO; +NICO21TP TOP; +RANO500T PO; +Robaxin750 MG PO; +TRAZ50 PO
[2024-05-04 10:13] VITALS: BP 144/71
[2024-05-04] MEDS ORDERED: Midazolam HCl 1MG / ML 2ML Vial ONE (11:18)
[2024-05-04] MEDS ORDERED: NS 250 ML IV ONE (11:18)
[2024-05-04] MEDS ORDERED: FentaNYL Citrate 50 MCG/ML 2 ML Injection ONE (11:18)
[2024-05-04 11:53] VITALS: BP 162/67
[2024-05-04 12:00] VITALS: BP 155/106
--- NOTE | 2024-05-04 12:06 | NUR ---
PT BACK FROM PROCEDURE AT 1155. PT AWAKE AND ALERT, DENIES COMPLAINTS. FAMILY AT BEDSIDE. JUICE AND FOOD GIVEN TO PT; PT DARCI W/O ISSUES.
[2024-05-04 12:15] VITALS: BP 139/75
[2024-05-04 12:30] VITALS: BP 153/62
--- NOTE | 2024-05-04 13:06 | NUR ---
PT AWAKE AND ALERT, DENIES COMPLAINTS, DARCI FOOD AND FLUIDS. VERBAL AND WRITTEN DISCHARGE INSTRUCTIONS GIVEN W CLEAR UNDERSTANDING. PT HAS HOME HEALTH VISITS Q 2WEEKS, PT HAS F/U APPT WITH UROLOGY. PT DC'D HOME IN STABLE CONDITION AT 1300. PT ESCORTED OUT VIA WHEELCHAIR AND WAS DISCHARGED TO CARE OF AND SON.
== END 2024-05-04 13:24 | disposition home or self-care (01) ==
LOC: MHTC 09:53
DX: Z43.6 Encounter for attention to other artificial openings of urinary tract (principal); R33.9 Retention of urine, unspecified; N13.9 Obstructive and reflux uropathy, unspecified; E78.5 Hyperlipidemia, unspecified; I25.10 Atherosclerotic heart disease of native coronary artery without angina pectoris; I25.2 Old myocardial infarction; I11.0 Hypertensive heart disease with heart failure; I50.22 Chronic systolic (congestive) heart failure; F90.9 Attention-deficit hyperactivity disorder, unspecified type; F17.200 Nicotine dependence, unspecified, uncomplicated; Z95.5 Presence of coronary angioplasty implant and graft; Z79.02 Long term (current) use of antithrombotics/antiplatelets; Z79.899 Other long term (current) drug therapy
CPT/HCPCS: 51102; 99152; C1729; C1769; J2250; J3010; J7050; Q9967

== ENCOUNTER 2024-05-06 07:52 | Emergency (ER) | payer OTHER ==
[~2024-05-06] VITALS: Ht 182.9 cm; Wt 113.4 kg
[2024-05-06] MEDS ORDERED: Methocarbamol 500 MG Tab PO ONE (08:20)
[2024-05-06] MEDS ORDERED: Ibuprofen 400 MG Tab PO ONE (08:50)
[2024-05-06] MEDS ORDERED: HYDROmorphone HCl/Pf 1MG SYR IV ONE (09:50)
[2024-05-06 10:26] LABS: BASOPHILS ABSOLUTE AUTO 0.02 K/mm3 (0.00-0.23); BASOPHILS PERCENT AUTO 0 % (0-2); EOSINOPHILS ABSOLUTE AUTO 0.05 K/mm3 (0.00-0.68); EOSINOPHILS PERCENT AUTO 1 % (0-6); Hematocrit 29.5 % (37.0-53.0); IMMATURE GRAN ABSOLUTE AUTO 0.02 K/mm3 (0.00-0.10); IMMATURE GRAN PERCENT AUTO 0 % (0-1); LYMPHOCYTES ABSOLUTE AUTO 0.41 K/mm3 (0.84-5.20); LYMPHOCYTES PERCENT AUTO 7 % (21-46); MONOCYTES ABSOLUTE AUTO 0.66 K/mm3 (0.16-1.47); MONOCYTES PERCENT AUTO 12 % (4-13); Mean Corpuscular HGB 33.8 pg (26.0-34.0); Mean Corpuscular HGB Conc 33.9 g/dL (31.5-36.5); Mean Corpuscular Volume 100 fL (80-100); Mean Platelet Volume 9.6 fL (9.1-12.4); NEUTROPHILS ABSOLUTE AUTO 4.52 K/mm3 (1.96-9.15); NEUTROPHILS PERCENT AUTO 80 % (41-73); Platelet Count 109 K/mm3 (150-400); RDW Coefficient Variation 17.1 % (11.7-14.2); Red Blood Cell Count 2.96 M/mm3 (4.30-5.90); White Blood Cell Count 5.68 K/mm3 (4.00-11.30)
[2024-05-06 10:49] LABS: Albumin, Blood 2.6 g/dL (3.4-5.0); Albumin/Globulin Ratio 0.8 (0.8-1.8); Bilirubin, Total 2.8 mg/dL (0.1-1.0); Bun/Creatinine Ratio 28.1 (12.0-20.0); Calcium, Blood 8.9 mg/dL (8.5-10.1); Creatinine, Blood 1.53 mg/dL (0.60-1.20); Globulin, Blood 3.4 g/dL (2.2-4.0); Potassium, Blood 4.6 mmol/L (3.5-5.5)
[2024-05-06] MEDS ORDERED: NS 1,000 ML IV SCH (12:10)
[2024-05-06] MEDS ORDERED: Robaxin750 MG PO (13:20)
[2024-05-06] MEDS ORDERED: Lasix40 MG PO (13:20)
[2024-05-06] MEDS ORDERED: HYDR1TAB94 PO (13:20)
[2024-05-06] MEDS ORDERED: ALDACTONE100 MG PO (13:20)
[2024-05-06 13:30] VITALS: BP 118/61
== END 2024-05-06 13:36 | disposition home or self-care (01) ==
LOC: ER 07:52
PROVIDERS: Physician Assistant
DX: M54.50 Low back pain, unspecified (principal); R18.8 Other ascites; E11.9 Type 2 diabetes mellitus without complications; E78.5 Hyperlipidemia, unspecified; Z79.84 Long term (current) use of oral hypoglycemic drugs; Z79.899 Other long term (current) drug therapy
CPT/HCPCS: 72070; 72100; 74177; 80053; 83880; 85025; 96361; 96374-59; 99284-25; A9270; J1171; J7030; Q9967

== ENCOUNTER 2024-05-21 02:40 | Emergency (ER) | payer OTHER ==
[~2024-05-21] VITALS: Ht 193 cm; Wt 124.7 kg
[~2024-05-21 02:40] MED LIST changes: +ALDACTONE100 MG PO; +HYDR1TAB94 PO; +Lasix40 MG PO
[2024-05-21] MEDS ORDERED: HYDROCODONE-AC1 EA19 PO (03:05)
[2024-05-21 03:12] LABS: BASOPHILS ABSOLUTE AUTO 0.02 K/mm3 (0.00-0.23); BASOPHILS PERCENT AUTO 0 % (0-2); EOSINOPHILS ABSOLUTE AUTO 0.09 K/mm3 (0.00-0.68); EOSINOPHILS PERCENT AUTO 2 % (0-6); Hematocrit 31.8 % (37.0-53.0); Hemoglobin 10.9 g/dL (13.5-17.5); IMMATURE GRAN ABSOLUTE AUTO 0.03 K/mm3 (0.00-0.10); IMMATURE GRAN PERCENT AUTO 1 % (0-1); LYMPHOCYTES ABSOLUTE AUTO 0.53 K/mm3 (0.84-5.20); LYMPHOCYTES PERCENT AUTO 12 % (21-46); MONOCYTES ABSOLUTE AUTO 0.48 K/mm3 (0.16-1.47); MONOCYTES PERCENT AUTO 11 % (4-13); Mean Corpuscular HGB 33.7 pg (26.0-34.0); Mean Corpuscular HGB Conc 34.3 g/dL (31.5-36.5); Mean Corpuscular Volume 99 fL (80-100); Mean Platelet Volume 9.4 fL (9.1-12.4); NEUTROPHILS ABSOLUTE AUTO 3.42 K/mm3 (1.96-9.15); NEUTROPHILS PERCENT AUTO 75 % (41-73); Platelet Count 116 K/mm3 (150-400); RDW Coefficient Variation 18.1 % (11.7-14.2); RDW Standard Deviation 65.5 fL (35.1-46.3); Red Blood Cell Count 3.23 M/mm3 (4.30-5.90); White Blood Cell Count 4.57 K/mm3 (4.00-11.30)
[2024-05-21 03:37] LABS: Albumin, Blood 2.6 g/dL (3.4-5.0); Albumin/Globulin Ratio 0.7 (0.8-1.8); Bilirubin, Total 3.5 mg/dL (0.1-1.0); Bun/Creatinine Ratio 24.1 (12.0-20.0); Creatinine, Blood 2.03 mg/dL (0.60-1.20); Globulin, Blood 3.6 g/dL (2.2-4.0); Potassium, Blood 4.5 mmol/L (3.5-5.5); Total Protein, Blood 6.2 g/dL (6.4-8.2)
[2024-05-21 03:52] LABS: International Normalized Ratio 1.26; Prothrombin Time Results 13.3 Sec (9.7-11.5)
[2024-05-21 04:06] LABS: Bilirubin, Direct 1.7 mg/dL (0.0-0.3)
[2024-05-21] MEDS ORDERED: Furosemide 10 MG/ML 4ML Vial IV ONE (04:10)
[2024-05-21] MEDS ORDERED: ALBUMIN IV ONE (05:30)
[2024-05-21 05:42] LABS: Automated BF RBC Count 0.005 M/mm3 (0-0); Automated BF WBC Count 0.148 K/mm3 (0-999)
[2024-05-21] MEDS ORDERED: Albumin Human 50 ML IV SCH (05:45)
[2024-05-21 05:55] LABS: Body Fluid WBC Count 148 /mm3 (0-999); RBC Count, Body Fluid 5000 /mm3 (0-0)
[2024-05-21 06:02] LABS: Glucose, Body Fluid 132 mg/dL; Protein, Body Fluid 1.6 g/dL
[2024-05-21 06:30] VITALS: BP 132/50
[2024-05-21 06:36] LABS: Total Cell Count, Body Fluid 100
[2024-05-21 06:38] LABS: Appearance, Body Fluid Hazy (Clear); Color, Body Fluid Yellow (None-Yellow)
== END 2024-05-21 08:15 | disposition home or self-care (01) ==
LOC: ER 02:40
PROVIDERS: Student in an Organized Health Care Education/Training Program
DX: R14.0 Abdominal distension (gaseous) (principal); R18.8 Other ascites; R06.02 Shortness of breath; R79.89 Other specified abnormal findings of blood chemistry; E11.9 Type 2 diabetes mellitus without complications; E78.5 Hyperlipidemia, unspecified; Z79.899 Other long term (current) drug therapy; Z79.84 Long term (current) use of oral hypoglycemic drugs
CPT/HCPCS: 49082; 71046; 80053; 82248; 82945; 84157; 85025; 85610; 87070; 87075; 87205; 89051; 93005; 93010; 96365-59; 96366-59; 96375-59; 99284-25; J1940; P9047